=== PATIENT | female | born 1990 | race Two or more races ===

== ENCOUNTER 2022-08-23 20:45 | Emergency (ER) | payer MEDICAID | END 2022-08-23 22:12 | disposition left against medical advice (07) | LOC: ER 20:45 | DX: H57.12 Ocular pain, left eye (principal); Z53.21 Procedure and treatment not carried out due to patient leaving prior to being seen by health care provider ==

== ENCOUNTER 2022-11-01 13:41 | Emergency (ER) | payer MEDICAID ==
[~2022-11-01] VITALS: Ht 162.6 cm; Wt 96.1 kg
[2022-11-01 14:05] VITALS: BP 120/75
[2022-11-01] MEDS ORDERED: IBUP800T27 PO (14:31)
[2022-11-01] MEDS ORDERED: CEPH-510 PO (14:31)
== END 2022-11-01 14:47 | disposition home or self-care (01) ==
LOC: ER 13:41
DX: N61.0 Mastitis without abscess (principal); Z88.0 Allergy status to penicillin; Z88.1 Allergy status to other antibiotic agents; Z88.8 Allergy status to other drugs, medicaments and biological substances; Z88.6 Allergy status to analgesic agent